=== PATIENT | female | born 1965 | race Caucasian/White ===

== ENCOUNTER 2024-03-28 07:35 | Inpatient (IN) | payer BC, SELFPAY ==
[2024-03-28] VITALS (10 sets, daily range): BP systolic 90–124; BP diastolic 57–71; PULSE 74–100; RESP 18–20; TEMP 36.2–39.6; O2SAT 93–100; BMI 17.9; BMI 19.3
--- NOTE | 2024-03-28 08:09 | XR_ITS ---
Examination: CT abdomen and pelvis without contrast. Coronal 3-D reconstructions. Sagittal 2-D reconstructions. Date and time of exam:March 28, 2024 at 0858 hours INDICATIONS: Left-sided flank pain beginning this morning CTDI: vol (mGy): 5.74 DLP: (mGycm): 307 Technique: Axial images of the abdomen have been obtained, 3 mm slice thickness Intravenous contrast material has not been administered. Low dose protocols were performed. One or more of the following dose reduction techniques were used; automated exposure control, adjustment of the mA and/or KV according to patient size, use of iterative reconstruction technique. Findings: 25 x 26 mm pulmonary mass with spiculated margins in the right middle lobe No focal liver or splenic lesion No gallstones No pancreatic mass Aorta normal size 2 mm calculus anterior left kidney image 98 Right kidney not visualized No bowel obstruction No pericecal inflammatory change Intact urinary bladder Retroverted uterus, possible 24 mm posterior left pelvic cyst Moderate osteopenia with moderate disc narrowing L5-S1 IMPRESSION: 25 x 26 mm pulmonary mass with spiculated margins right middle lobe, likely lung carcinoma, recommend CT chest without contrast follow-up 2 mm nonobstructing anterior left renal calculus, no hydronephrosis Right kidney not visualized Possible posterior 24 mm left pelvic cyst, recommend pelvic sonography follow-up
--- NOTE | 2024-03-28 08:10 | EDRME_ITS ---
Rapid Medical Screening Exam RME Arrival date/time: 03/28/24 07:35 This is a 58-year-old female who presents to the emergency department with left flank pain x 1 day. Reports possible mild fever yesterday. History of nephrectomy. I have greeted and performed a focused initial assessment of this patient. In itial appropriate labs ordered at this time. A comprehensive ED assessment and evaluation of the patient and analysis of all test and completion of medical decision making process will be conducted by additional ED provider. Chief Complaint: Abdominal Pain Time Seen by Provider: 03/28/24 07:59 Vital signs: Vital Signs Temperature 99.0 F 03/28/24 07:36 Pulse Rate 88 03/28/24 07:36 Respiratory Rate 19 03/28/24 07:36 Blood Pressure 123/71 03/28/24 07:36 Pulse Oximetry (%) 99 03/28/24 07:36 Oxygen Delivery Method Room Air 03/28/24 07:36
[2024-03-28 08:28] LABS: Collection Type, Urine Clean Catch
[2024-03-28] MEDS: ACETAMINOPHEN 500 MG TABLET 1000 MG PO ×2 (08:36→16:27)
[2024-03-28 08:51] LABS: Basophils # (Auto) 0.1 Thou/mm3 (0.0-0.2); Basophils % (Auto) 0 % (0-2.5); Eosinophils % (Auto) 0 % (0-10); Hematocrit 38.8 % (36.0-46.0); Hemoglobin 13.2 g/dL (12.0-16.0); Immature Granulocytes % (Auto) 0 % (0-0); Immature Granulocytes Auto 0.05 Thou/mm3 (0.00-0.00); Lymphocytes % (Auto) 8 % (10-50); Mean Corpuscular Hemoglobin 31.4 pg (25.0-35.0); Mean Corpuscular Volume 92 fL (80-100); Monocytes # (Auto) 0.8 Thou/mm3 (0.0-0.8); Monocytes % (Auto) 7 % (0-12); Neutrophils # (Auto) 10.2 Thou/mm3 (1.8-7.7); Neutrophils % (Auto) 84 % (37-80); Nucleated Red Blood Cell % 0 /100 WBC (0); Platelet Count 207 Thou/mm3 (140-440); Red Blood Count 4.21 Miln/mm3 (4.00-5.20); White Blood Count 12.2 Thou/mm3 (3.6-11.0)
[2024-03-28 08:52] LABS: Lactate (Lactic Acid) 1.1 mMol/L (0.4-2.0)
[2024-03-28 09:22] LABS: Bacteria,Urine 4+; Bilirubin,Urine Negative (Negative); Blood,Urine 2+ (Negative); Color,Urine Drk-Yellow (Lt Yel-Yel); Glucose, Urine Negative (Negative); Ketones,Urine Negative (Negative); Leukocyte Esterase,Urine Positive (Negative); Nitrite,Urine Positive (Negative); PH,Urine 6.5 (5.0-7.0); Protein,Urine 1+ (Neg - Trace); RBC,Urine 2 /hpf (0-3); Specific Gravity,Urine 1.005 (1.001-1.035); Squamous Epithelial Cell,Urine < 1 /hpf (0-5); Transitional Epi Cells,Urine < 1 /hpf (0-5); Urobilinogen,Urine Negative mg/dL (0.0-1.0); WBC,Urine 187 /hpf (0-5)
[2024-03-28 09:24] LABS: Alanine Aminotransferase 11 U/L (10-49); Albumin, Serum 4.6 gm/dL (3.4-4.8); Albumin/Globulin Ratio 1.6 (1.2-2.2); Alkaline Phosphatase 59 U/L (46-116); Anion Gap 10 (7-16); Aspartate Amino Transferase 22 U/L (0-34); BUN/Creatinine Ratio 12 Ratio (12-20); Bilirubin,Total 1.1 mg/dL (0.3-1.2); Blood Urea Nitrogen 12 mg/dL (9-23); Calcium 10.2 mg/dL (8.3-10.6); Calcium (Corrected) 10.2 mg/dL (8.5-10.1); Carbon Dioxide 26.4 mMol/L (20.0-31.0); Chloride 100 mMol/L (98-107); Globulin 2.9 gm/dL (2.3-3.5); Glucose 129 mg/dL (74-106); Lipase 34 U/L (12-53); Osmolality,Calculated 273 (275-295); Potassium 4.1 mMol/L (3.4-5.1); Procalcitonin 0.68 ng/ml (0.0-0.49); Sodium 136 mMol/L (136-145); Total Protein 7.5 gm/dL (5.7-8.2); eGFR > 60 See Note
[2024-03-28 09:26] LABS: Clarity,Urine Hazy (Clear/Hazy)
--- NOTE | 2024-03-28 10:15 | PD.EDABDPN ---
ED Abdominal Pain RME/HPI General Chief Complaint: Abdominal Pain Stated complaint: left flank pain since last pm Time seen by provider: 03/28/24 07:59 Arrival date/time: 03/28/24 07:35 RME / HPI RME / HPI narrative: 03/28/24 07:35 This is a 58-year-old female who presents to the emergency department with left flank pain x 1 day. Reports possible mild fever yesterday. History of nephrectomy. I have greeted and performed a focused initial assessment of this patient. Initial appropriate labs ordered at this time. A comprehensive ED assessment and evaluation of the patient and analysis of all test and completion of medical decision making process will be conducted by additional ED provider. DR. ESCOBEDO MAIN ED EVALUATION: 58 year old female presents to the ED for complaint of left flank pain beginning yesterday. Described as sharp stabbing in sensation, without radiation, rating as severe. Accompanied by subjective fever yesterday. Additionally reports she has had diarrhea for 1 week. Denies any fevers, chills, nasal congestion, chest pain, cough, shortness of breath, vomiting, or urinary symptoms. Related Data Allergies Allergy/AdvReac Type Severity Reaction Status Date / Time codeine Allergy Vomiting Verified 03/28/24 07:38 Review of Systems Review of Systems Narrative Review of Systems: Constitutional: +subjective fevers Eyes: DENIES; Loss of vision Head/Ear/Nose: DENIES; Loss of hearing Throat: DENIES; Dysphagia Cardiovascular: DENIES; Chest pain, dyspnea or syncope Respiratory: DENIES; Shortness of breath Gastrointestinal: SEE HPI +left flank pain, diarrhea DENIES; Rectal bleeding or melena. Genitourinary: DENIES; Dysuria (painful or difficult urination) Musculoskeletal: DENIES; Arthralgia (pain in a joint),; Skin: DENIES; Rash Neurological: DENIES; Loss of function or movement Psychiatric: DENIES; recent major life stressor, emotional problem, illicit drug use or abuse Endocrinology: DENIES; Weight change Hematologic/Lymphatic: DENIES; Abnormal bruising Allergic/Immunologic: DENIES; Urticaria (hives) Past Medical History Past Medical History CARDIAC: Negative Congestive Heart Failure RESPIRATORY: Negative Chronic Obstructive Pulmonary Disease (COPD) GENITOURINARY: Negative Renal Disease ENDOCRINE: Negative Diabetes Mellitus Type 1 or Diabetes Mellitus Type 2 Social History SMOKING STATUS: Former smoker ED Exam Narrative Physical exam: Physical Exam: General: The vital signs were reviewed. The patient is non-toxic, in no apparent distress and appears healthy with a patent airway, no respiratory distress and has no apparent circulatory problems. Head & Scalp: Normocephalic, atraumatic. Face: Appears normal and is without lesions, deformity. Ears: Left external pinna appears normal. Right external pinna appears normal. Eyes: The sclera is anicteric. No obvious photophobia. The Left and Right Orbit/Lid/Conjunctiva appears normal without swelling, discoloration or injection. Nose: The nose is without deformity, discharge or tenderness; Throat: Appears normal. The mucous membranes are pink and moist without exudates, redness or mass seen. The tongue appears normal. Neck: The neck is supple and no apparent mass or adenopathy. Chest: The chest wall is normal in size and symmetry and has no chest wall tenderness or crepitus. The patient displays normal ventilator effort without retractions, accessory muscle use and has adequate air movement bilaterally with no wheezes and no rales. Cardiovascular: Regular rate and rhythm; No murmurs, rubs, or gallops; Gastrointestinal: The abdomen appears normal. No obvious hernias or mass. The abdomen is soft and benign, non-distended, with no pain, no guarding and no rebound tenderness. Bowel sounds are present and normal sounding. No CVA tenderness. Genitourinary: Back/Spine: Tenderness over the left flank deep inside, not palpable Extremities/Musculoskeletal/lymphatic: The bilateral upper and lower extremities are warm. There is no evidence of arterial insufficiency. There is no evidence of venous insufficiency/edema. The patient spontaneously moves bilateral upper and lower extremities with no pain and no limitation of movement. There is no apparent, injury or trauma. Skin: The skin is warm, dry and intact. No rashes. No petechia. No purpura. No abnormal bruising. The color is appropriate with no cyanosis. Mental status/Psychiatric: Mental status is appropriate for age. The patient has no apparent delusions, visual hallucinations, no apparent audible hallucinations. The patient has no apparent suicidal thoughts/ideation and no apparent homicidal thoughts/ideation. Neurological: The patient is awake, alert, interactive, cordial, cooperative and is oriented to name and situation. The patient follows commands and answers historical question with no impairment. There is no visual disturbance apparent. The pupils are equal and reactive bilaterally with normal eye movements and no diplopia The bilateral upper and lower extremities have normal strength, normal range of motion and normal functioning. The gait, station and balance appear to be baseline with no acute change Course Quality Measures none Orders Category Date Time Status Admit to Inpatient Status Routine Admission 03/28/24 17:08 Active Patient Condition Routine Admission 03/28/24 17:07 Ordered Bedside Influenza A&B Antigen Test NOW Care 03/28/24 16:[address] Screening NOW Care 03/28/24 12:44 Active Intake and Output QSHIFT Care 03/28/24 17:15 Ordered Miscellaneous Nursing Order NOW Care 03/28/24 17:07 Active Notify provider NEEDED Care 03/28/24 17:07 Active Obtain weight NOW Care 03/28/24 17:07 Active Sequential Compression Device QSHIFT Care 03/28/24 17:[address] abdomen pelvis wo con Stat Exams 03/28/24 08:[address] chest abdomen pelvis w Stat Exams 03/28/24 12:44 Completed XR chest 2V Stat Exams 03/28/24 12:44 Completed Basic Metabolic Panel AM DRAW Lab 03/29/24 05:00 Ordered Basic Metabolic Panel AM DRAW Lab 03/30/24 05:00 Ordered Basic Metabolic Panel AM DRAW Lab 03/31/24 05:00 Ordered Blood Culture (Lab) Stat Lab 03/28/24 16:28 Received CBC AM DRAW Lab 03/29/24 05:00 Ordered CBC AM DRAW Lab 03/30/24 05:00 Ordered CBC AM DRAW Lab 03/31/24 05:00 Ordered CBC Stat Lab 03/28/24 08:25 Completed Comprehensive Metabolic Panel Stat Lab 03/28/24 08:25 Completed HCG Qualitative,Urine Stat Lab 03/28/24 10:06 Ordered Lactate (Lactic Acid) Stat Lab 03/28/24 08:25 Completed Lactate (Lactic Acid) Stat Lab 03/28/24 16:33 Completed Lipase Stat Lab 03/28/24 08:25 Completed Lipid Panel AM DRAW Lab 03/29/24 05:00 Ordered Liver Panel AM DRAW Lab 03/29/24 05:00 Ordered MRSA Nasal Screen Stat Lab 03/28/24 17:07 Ordered Magnesium AM DRAW Lab 03/29/24 05:00 Ordered Phosphorous AM DRAW Lab 03/29/24 05:00 Ordered Procalcitonin Stat Lab 03/28/24 08:25 Completed Prothrombin Time with INR AM DRAW Lab 03/29/24 05:00 Ordered Thyroid Stimulating Hormone AM DRAW Lab 03/29/24 05:00 Ordered Urinalysis Stat Lab 03/28/24 10:06 Ordered Urine Culture Stat Lab 03/28/24 08:20 Received Acetaminophen Tab [Tylenol ES Tab] Med 03/28/24 08:34 Discontinued 1,000 mg PO X1 ONE Acetaminophen Tab [Tylenol ES Tab] Med 03/28/24 16:13 Discontinued 1,000 mg PO X1 ONE Acetaminophen Tab [Tylenol Tab] Med 03/28/24 17:07 Active 650 mg PO Q6H PRN Ketorolac Inj [Toradol Inj] Med 03/28/24 08:09 Discontinued 30 mg IM X1 ONE Morphine Inj Med 03/28/24 12:19 Discontinued 4 mg IVP X1 ONE Morphine Inj Med 03/28/24 15:57 Discontinued 4 mg IVP X1 ONE Ondansetron Inj [Zofran Inj] Med 03/28/24 17:07 Active 4 mg IV Q6H PRN Ondansetron Inj [Zofran Inj] Med 03/28/24 12:18 Discontinued 4 mg IV X1 ONE Ondansetron Inj [Zofran Inj] Med 03/28/24 15:58 Discontinued 4 mg IV X1 ONE Senna [Senokot] Med 03/28/24 17:07 Active 2 tab PO BID PRN Sodium Chloride 0.9% 1000 ml [Ns] 1,000 ml Med 03/28/24 16:13 Active IV 150 mls/hr Sodium Chloride 0.9% 1000 ml [Ns] 1,000 ml Med 03/28/24 10:43 Discontinued IV 999 mls/hr cefTRIAXone/D5w 1gm IV premix [Rocephin/D5w 1gm IV Med 03/28/24 10:44 Discontinued premix] 50 ml IV X1 Code Status Routine Oth 03/28/24 17:07 Ordered Oxygen Delivery DAILY RT 03/28/24 17:07 Active Vital Signs Vital signs: Vital Signs Temperature 99.0 F 03/28/24 07:36 Pulse Rate 88 03/28/24 07:36 Respiratory Rate 19 03/28/24 07:36 Blood Pressure 123/71 03/28/24 07:36 Pulse Oximetry (%) 99 03/28/24 07:36 Oxygen Delivery Method Room Air 03/28/24 07:36 Pulse ox is 99% on room air which is adequate. Abdominal Pain MDM MDM Narrative MDM Narrative:: I Hedybren Cope, am scribing for and in the presence of Dr. Escobedo. Patient presents with left-sided abdominal pain without any fevers having some nausea but no vomiting no diarrhea Medical workup revealed a white count of 12.2 hemoglobin of 13.2 platelets were normal left shift of 84% sodium 136 potassium 4 point chloride 100 CO2 26 before BUN 12 creatinine 1.0 glucose is 129 lactic acid was 1.1 procalcitonin as 0.68. Urine is positive for some blood in 187 white blood cells were found. A culture was submitted. Patient got 2 doses of pain medicine she continue to have nonstop pain on the left side. Because of this a noncontrast scan was done of the abdomen which revealed no obstructing stone but there was a 2 mm parenchymal stone, and incidentally a 2.5 cm spiculated mass was seen in the right middle lobe. So a CT scan with contrast was done of the chest abdomen pelvis which reveals the same 2.5 cm spiculated mass concerning for neoplasm. There is no other tumor seen. There is no other evidence of metastatic disease and the chest and abdominal exam otherwise was negative. Patient began to spike a fever of 103 and was still having pain so at that point we assume she is got pyelonephritis and because she is having continued nausea and pain will get admitted for fluids intractable pain. She got Rocephin to treat her urine infection. Blood culture is also pending. Hospitalist was contacted and they will admit the patient and they are aware she has a single kidney and also the lung mass was addressed and the family is aware that they will need follow-up and probable lung biopsy. Patient data External records reviewed:: None (No previous visits for review ) Clinical information provided by:: patient Social determinants that could affect healthcare access:: none Patient has the following chronic illnesses:: Kidney stone, solitary kidney How is presenting disease/condition affected by chronic disease/condition?: exacerbated by Evaluation data The following diagnostics were reviewed and interpreted by me:: lab results and radiology exam(s) Lab and/or radiology exams considered but not ordered:: None Interpretation Summary: Ordering Physician: Esquivel,Angela M [employer] Date of Service: 03/28/24 Procedure(s): CT abdomen pelvis wo [facility] Accession Number(s): [id number] cc: Austin Guzman MD; NO PRIMARY/FAMILY,PHYSICIAN; Angela Esquivel [employer]~ Examination: CT abdomen and pelvis without contrast. Coronal 3-D reconstructions. Sagittal 2-D reconstructions. Date and time of exam:March 28, 2024 at 0858 hours INDICATIONS: Left-sided flank pain beginning this morning CTDI: vol (mGy): 5.74 DLP: (mGycm): 307 Technique: Axial images of the abdomen have been obtained, 3 mm slice thickness Intravenous contrast material has not been administered. Low dose protocols were performed. One or more of the following dose reduction techniques were used; automated exposure control, adjustment of the mA and/or KV according to patient size, use of iterative reconstruction technique. Findings: 25 x 26 mm pulmonary mass with spiculated margins in the right middle lobe No focal liver or splenic lesion No gallstones No pancreatic mass Aorta normal size 2 mm calculus anterior left kidney image 98 Right kidney not visualized No bowel obstruction No pericecal inflammatory change Intact urinary bladder Retroverted uterus, possible 24 mm posterior left pelvic cyst Moderate osteopenia with moderate disc narrowing L5-S1 IMPRESSION: 25 x 26 mm pulmonary mass with spiculated margins right middle lobe, likely lung carcinoma, recommend CT chest without contrast follow-up 2 mm nonobstructing anterior left renal calculus, no hydronephrosis Right kidney not visualized Possible posterior 24 mm left pelvic cyst, recommend pelvic sonography follow-up Dictated By: Austin Guzman MD Signed By: <Electronically signed by Austin Guzman MD in OV> 03/28/24 0944 Ordering Physician: Norris Escobedo MD Date of Service: 03/28/24 Procedure(s): XR chest 2V Accession Number(s): [id number] cc: Norris Escobedo MD; Austin Guzman MD; NO PRIMARY/FAMILY,PHYSICIAN~ Examination: PA lateral chest 2 views TECHNIQUE: Upright PA lateral chest 2 views Exam date and time: March 28, 2024 1255 hours Comparison May 03, 2016 INDICATIONS: Chest pain today, CT abdomen March 28, 2024 26 mm spiculated pulmonary mass right middle lobe FINDINGS: 26 mm spiculated pulmonary mass right middle lobe No hilar lymphadenopathy Significant hyperexpansion Normal heart size IMPRESSION: Pulmonary neoplasm right middle lobe Dictated By: Austin Guzman MD Signed By: <Electronically signed by Austin Guzman MD in OV> 03/28/24 1314 Ordering Physician: Norris Escobedo MD Date of Service: 03/28/24 Procedure(s): CT chest abdomen pelvis w Accession Number(s): [id number] cc: Norris Escobedo MD; Austin Guzman MD; NO PRIMARY/FAMILY,PHYSICIAN~ Examination: CT chest with intravenous contrast CT abdomen with intravenous contrast CT pelvis with intravenous contrast 2-D coronal and sagittal reconstructions Time of exam: March 28, 2024 1418 hours INDICATIONS: Onset chest pain abdominal pain today, 26 mm spiculated pulmonary mass right middle lobe on chest x-ray March 28, 2024, staging CTDI: vol (mGy) : 7.14 DLP: (mGycm): 517 Technique: Multiple axial images of the chest, abdomen and pelvis with intravenous contrast, 3.0 mm slice thickness. Images obtained post intravenous injection Isovue 370 60 cc. 2-D sagittal and coronal reconstructions. Low dose protocols were performed. One or more of the following dose reduction techniques were used; automated exposure control, adjustment of the mA and/or KV according to patient size, use of iterative reconstruction technique. Findings: No thoracic aortic aneurysmal dilatation Pulmonary artery opacification is poor No paratracheal tracheobronchial or bronchopulmonary lymphadenopathy 25 mm pulmonary mass spiculated margins right middle lobe No pneumonia or pulmonary edema No liver or splenic lesion No gallstones No pancreatic mass No left hydronephrosis Right kidney not visualized No abdominal or pelvic lymphadenopathy Left pelvic cyst Urinary bladder wall thickening Advanced degenerative disc disease L5-S1 IMPRESSION: 25 mm pulmonary mass with spiculated margins right middle lobe No mediastinal lymphadenopathy No findings of metastatic disease in the abdomen or pelvis Dictated By: Austin Guzman MD Signed By: <Electronically signed by Austin Guzman MD in OV> 03/28/24 1546 Medications / Prescriptions Medications or Prescriptions considered but not ordered:: None Medication administrations:: Medication Administration History Acetaminophen (Acetaminophen 325 Mg Tablet) 650 mg PO Q6H PRN PRN Reason: PAIN OR FEVER > 101 Stop: 04/27/24 17:06 Sodium Chloride (Ns) 1,000 mls @ 150 mls/hr IV .Q6H40M ONE Stop: 03/28/24 22:52 Last Admin: 03/28/24 16:24 Dose: 150 mls/hr Documented By: GAVIN Ondansetron HCl (Ondansetron Inj 2 Mg/Ml Inj 2 Ml) 4 mg IV Q6H PRN; Protocol PRN Reason: NAUSEA OR VOMITING Stop: 04/27/24 17:06 Sennosides (Senna Tablet) 2 tab PO BID PRN; Protocol PRN Reason: CONSTIPATION Stop: 04/27/24 17:06 Discontinued Medications Acetaminophen (Acetaminophen 500 Mg Tablet) 1,000 mg PO X1 ONE Stop: 03/28/24 08:35 Last Admin: 03/28/24 08:36 Dose: 1,000 mg Documented By: GM Acetaminophen (Acetaminophen 500 Mg Tablet) 1,000 mg PO X1 ONE Stop: 03/28/24 16:14 Last Admin: 03/28/24 16:27 Dose: 1,000 mg Documented By: GAVIN Sodium Chloride (Ns) 1,000 mls @ 999 mls/hr IV .Q1H1M ONE Stop: 03/28/24 11:43 Last Infusion: 03/28/24 12:00 Dose: Infused Documented By: Admin: 03/28/24 10:59 Dose: 999 mls/hr Documented By: GAVIN Ceftriaxone Sodium/Dextrose (Rocephin/D5w 1gm Iv Premix) 50 mls @ 100 mls/hr IV X1 ONE Stop: 03/28/24 11:13 Last Infusion: 03/28/24 11:29 Dose: Infused Documented By: Admin: 03/28/24 10:59 Dose: 100 mls/hr Documented By: GAVIN Ketorolac Tromethamine (Ketorolac Inj 60 Mg/2 Ml Vial) 30 mg IM X1 ONE Stop: 03/28/24 08:10 Last Admin: 03/28/24 08:34 Dose: Not Given Documented By: LATRICE Non-Admin Reason: Patient Refused Morphine Sulfate (Morphine Sulf Inj 10 Mg/Ml Vial) 4 mg IVP X1 ONE Stop: 03/28/24 12:20 Last Admin: 03/28/24 12:43 Dose: 4 mg Documented By: GAVIN Morphine Sulfate (Morphine Sulf Inj 10 Mg/Ml Vial) 4 mg IVP X1 ONE Stop: 03/28/24 15:58 Ondansetron HCl (Ondansetron Inj 2 Mg/Ml Inj 2 Ml) 4 mg IV X1 ONE; Protocol Stop: 03/28/24 12:19 Last Admin: 03/28/24 12:31 Dose: 4 mg Documented By: GAVIN Ondansetron HCl (Ondansetron Inj 2 Mg/Ml Inj 2 Ml) 4 mg IV X1 ONE; Protocol Stop: 03/28/24 15:59 Last Admin: 03/28/24 16:08 Dose: 4 mg Documented By: GAVIN See above Consultations Consultation(s) initiated? (list below): Yes Consultation #1 (Physician, Specialty, Details): I spoke with resident Dr. Delacruz working with Dr. Braden. Discussed patients PMHx, HPI, ED course, exam findings, labs, and radiology results. The hospitalist agree to accept the patient for admission. Diagnosis Differential diagnosis abdominal pain: abdominal pain, calculus of kidney, constipation and diverticulitis Most likely diagnosis given after review of the tests above:: Left lateral abdominal pain Mass of right lung Single kidney UTI Fever Intractable back pain Acute pyelonephritis Admission Indicated Admission indicated?: indicated Admission Request Was there a request for admission?: Yes Admission Attestation Admission request attestation: Discussed case with [] from Hospitalist service regarding admission. Discussed patients ED course, exam findings, labs, and radiology results. The Hospitalist [agrees,declines] to accept the patient for admission. Disposition Plan Disposition Plan: Admit Discharge Plan Plan Patient Disposition: Admit Acute Care w/in Hospital Disposition Comment: Hospitalist Prescriptions/Referrals Referrals: No Primary/Family,Physician [Primary Care Provider] - In 1 week Problem List Clinical Impression: Left lateral abdominal pain, Mass of right lung, Single kidney, Urinary tract infection, Fever, Intractable back pain, Acute pyelonephritis Patient/Caregiver Discharge Instructions Print Language: French Stand Alone Forms: Yana Award Info., Patient Portal Info Letter
[2024-03-28] MEDS: SODIUM CHLORIDE 0.9% 1000 ML 1,000 ML 999 ML IV ×2 (10:59→18:15)
[2024-03-28] MEDS: cefTRIAXone/D5w 1gm IV premix 50 ML IV (10:59)
[2024-03-28] MEDS: ONDANSETRON INJ 2 MG/ML INJ 2 ML 4 MG IV ×2 (12:31→16:08)
[2024-03-28] MEDS: MORPHINE SULF INJ 10 MG/ML VIAL 4 MG IVP ×2 (12:43→17:47)
--- NOTE | 2024-03-28 12:44 | XR_ITS ---
Examination: CT chest with intravenous contrast CT abdomen with intravenous contrast CT pelvis with intravenous contrast 2-D coronal and sagittal reconstructions Time of exam: March 28, 2024 1418 hours INDICATIONS: Onset chest pain abdominal pain today, 26 mm spiculated pulmonary mass right middle lobe on chest x-ray March 28, 2024, staging CTDI: vol (mGy) : 7.14 DLP: (mGycm): 517 Technique: Multiple axial images of the chest, abdomen and pelvis with intravenous contrast, 3.0 mm slice thickness. Images obtained post intravenous injection Isovue 370 60 cc. 2-D sagittal and coronal reconstructions. Low dose protocols were performed. One or more of the following dose reduction techniques were used; automated exposure control, adjustment of the mA and/or KV according to patient size, use of iterative reconstruction technique. Findings: No thoracic aortic aneurysmal dilatation Pulmonary artery opacification is poor No paratracheal tracheobronchial or bronchopulmonary lymphadenopathy 25 mm pulmonary mass spiculated margins right middle lobe No pneumonia or pulmonary edema No liver or splenic lesion No gallstones No pancreatic mass No left hydronephrosis Right kidney not visualized No abdominal or pelvic lymphadenopathy Left pelvic cyst Urinary bladder wall thickening Advanced degenerative disc disease L5-S1 IMPRESSION: 25 mm pulmonary mass with spiculated margins right middle lobe No mediastinal lymphadenopathy No findings of metastatic disease in the abdomen or pelvis
--- NOTE | 2024-03-28 12:44 | XR_ITS ---
Examination: PA lateral chest 2 views TECHNIQUE: Upright PA lateral chest 2 views Exam date and time: March 28, 2024 1255 hours Comparison May 03, 2016 INDICATIONS: Chest pain today, CT abdomen March 28, 2024 26 mm spiculated pulmonary mass right middle lobe FINDINGS: 26 mm spiculated pulmonary mass right middle lobe No hilar lymphadenopathy Significant hyperexpansion Normal heart size IMPRESSION: Pulmonary neoplasm right middle lobe
--- NOTE | 2024-03-28 16:07 | PC.NURSE ---
cooling measures started , ice packs placed.
[2024-03-28] MEDS: SODIUM CHLORIDE 0.9% 1000 ML 1,000 ML 150 ML IV (16:24)
[2024-03-28 16:45] LABS: Lactate (Lactic Acid) 1.2 mMol/L (0.4-2.0)
--- NOTE | 2024-03-28 17:16 | ESHP_ITS ---
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 Per son, patient started to have abdominal pain on Monday03/25/2024 but subsided. Yesterday 03/27/2024 patient started to have abdominal pain associated with nausea and vomiting. Today patients abdominal pain was more focused on the left side of her back and was having nausea and diarrhea, as well as some discomfort with urination and was brought to the ED. Denies fever, chills, shortness of breath, chest pain. Patient will be admitted for Sepsis secondary to pyelonephritis. ED course: Vitals on arrival stable. Labs significant for elevated WBCs 12.2, glucose 129, corrected calcium 10.2, procalcitonin 0.68,. UA shows dark urine, +1 protein, +2 blood, 187 WBCs, +[address] abdomen pelvis showed 25 x 26 mm pulmonary mass with spiculated margins right middle lobe, likely lung carcinoma, recommend CT chest without contrast follow-up, 2 mm nonobstructing anterior left renal calculus, no hydronephrosis, Right kidney not visualized, Possible posterior 24 mm left pelvic cyst, recommend pelvic sonography follow-up. 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 In the ED patient was given morphine, IV fluids, ceftriaxone, tylenol PMHx: none SxHx: kidney donation Social Hx: quit vaping and drinking 1 year ago, denies any illicit substance use FHx: unknown Review of Systems Review of Systems ROS Unobtainable: unobtainable due to mental status Narrative Review of Systems: Patient was sleepy due to morphine, unable to assess ROS Exam Vital Signs Temp Pulse Resp BP Pulse Ox O2 Del Method 103.3 F H 100 20 124/70 95 Room Air 03/28/24 16:27 03/28/24 16:07 03/28/24 16:07 03/28/24 16:07 03/28/24 16:07 03/28/24 16:07 Narrative Exam Physical Exam GENERAL: NAD, AAOx3 HEENT: Moist mucosa. Eyes open, symmetrical, & clear CARDIO: No chest pain on palpation. Heart RRR, no obvious murmurs PULM: No noted coughing/dyspnea. 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 SKIN/MSK/EXT: No wounds/rashes/edema/amputations, no pain on palpation. Pedal pulses present B/L NEURO: AAOx3, no focal neuro deficits Results: Labs 03/29/24 05:44 03/29/24 05:44 Labs: Short CBC 03/28/24 Range/Units 08:25 WBC 12.2 H (3.6-11.0) Thou/mm3 Hgb 13.2 (12.0-16.0) g/dL Hct 38.8 (36.0-46.0) % Plt Count 207 (140-440) Thou/mm3 BMP 03/28/24 08:25 Sodium 136 Potassium 4.1 Chloride 100 Carbon Dioxide 26.4 BUN 12 Creatinine 1.0 Glucose 129 H Calcium 10.2 Liver Function 03/28/24 Range/Units 08:25 Total Bilirubin 1.1 (0.3-1.2) mg/dL AST 22 (0-34) U/L ALT 11 (10-49) U/L Alkaline Phosphatase 59 (46-116) U/L Albumin 4.6 (3.4-4.8) gm/dL Urine 03/28/24 Range/Units 08:20 Urine Color Drk-Yellow A (Lt Yel-Yel) Urine Clarity Hazy (Clear/Hazy) Urine pH 6.5 (5.0-7.0) Ur Specific Burchard 1.005 (1.001-1.035) Urine Protein 1+ A (Neg - Trace) Urine Glucose (UA) Negative (Negative) Quality Measures Quality Measures none Medications Home Medications and Allergies Home Medications ?Medication ?Instructions ?Recorded ?Confirmed ?Type No Known Home Medications 03/28/24 03/28/24 History Allergies Allergy/AdvReac Type Severity Reaction Status Date / Time codeine Allergy Vomiting Verified 03/28/24 07:38 Visit Medications Acetaminophen (Acetaminophen 325 Mg Tablet) 650 mg PO Q6H PRN PRN Reason: PAIN OR FEVER > 101 Stop: 04/27/24 17:06 Sodium Chloride (Ns) 1,000 mls @ 150 mls/hr IV .Q6H40M ONE Stop: 03/28/24 22:52 Last Admin: 03/28/24 16:24 Dose: 150 mls/hr Ondansetron HCl (Ondansetron Inj 2 Mg/Ml Inj 2 Ml) 4 mg IV Q6H PRN; Protocol PRN Reason: NAUSEA OR VOMITING Stop: 04/27/24 17:06 Sennosides (Senna Tablet) 2 tab PO BID PRN; Protocol PRN Reason: CONSTIPATION Stop: 04/27/24 17:06 Discontinued Medications Acetaminophen (Acetaminophen 500 Mg Tablet) 1,000 mg PO X1 ONE Stop: 03/28/24 08:35 Last Admin: 03/28/24 08:36 Dose: 1,000 mg Acetaminophen (Acetaminophen 500 Mg Tablet) 1,000 mg PO X1 ONE Stop: 03/28/24 16:14 Last Admin: 03/28/24 16:27 Dose: 1,000 mg Sodium Chloride (Ns) 1,000 mls @ 999 mls/hr IV .Q1H1M ONE Stop: 03/28/24 11:43 Last Infusion: 03/28/24 12:00 Dose: Infused Ceftriaxone Sodium/Dextrose (Rocephin/D5w 1gm Iv Premix) 50 mls @ 100 mls/hr IV X1 ONE Stop: 03/28/24 11:13 Last Infusion: 03/28/24 11:29 Dose: Infused Ketorolac Tromethamine (Ketorolac Inj 60 Mg/2 Ml Vial) 30 mg IM X1 ONE Stop: 03/28/24 08:10 Last Admin: 03/28/24 08:34 Dose: Not Given Morphine Sulfate (Morphine Sulf Inj 10 Mg/Ml Vial) 4 mg IVP X1 ONE Stop: 03/28/24 12:20 Last Admin: 03/28/24 12:43 Dose: 4 mg Morphine Sulfate (Morphine Sulf Inj 10 Mg/Ml Vial) 4 mg IVP X1 ONE Stop: 03/28/24 15:58 Ondansetron HCl (Ondansetron Inj 2 Mg/Ml Inj 2 Ml) 4 mg IV X1 ONE; Protocol Stop: 03/28/24 12:19 Last Admin: 03/28/24 12:31 Dose: 4 mg Ondansetron HCl (Ondansetron Inj 2 Mg/Ml Inj 2 Ml) 4 mg IV X1 ONE; Protocol Stop: 03/28/24 15:59 Last Admin: 03/28/24 16:08 Dose: 4 mg Assessment & Plan Plan 58 y/o F with hx of kidney donation presented to the ED with left sided flank pain, nausea, vomiting. Admitted for sepsis secondary to pyelonephritis. #Sepsis secondary to pyelonephritis Patient arrived with abdominal and left sided flank pain that began on Monday and has been progressing till arrival to ED On physical exam patient has + CVA tenderness CT abdomen pelvis was done and showed 25 x 26 mm pulmonary mass with spiculated margins right middle lobe, likely lung carcinoma, recommend CT chest without contrast follow-up, 2 mm nonobstructing anterior left renal calculus, no hydronephrosis, Right kidney not visualized, Possible posterior 24 mm left pelvic cyst, recommend pelvic sonography follow-up After my evaluation Sepsis alert was called Patient had fever, elevated WBCs, tachycardia, and UA showing bacterial infection Was given IVFs in ED - ordered 1L NS bolus - on Zosyn - blood cultures ordered - Urine cultures ordered - Cocci ordered - lactic acid ordered q4 hours #2 mm nonobstructing anterior left renal calculus Finding on CT abdomen pelvis patient has abdominal pain with nausea and vomiting patient has only 1 kidney as she donated the other to - IVFs - pain control - strainer for stone #25 x 26 mm pulmonary mass with spiculated margins right middle lobe incidental finding on CT abdomen pelvis CT chest abdomen pelvis done and showed 25 mm pulmonary mass with spiculated margins right middle lobe No mediastinal lymphadenopathy, No findings of metastatic disease in the abdomen or pelvis - follow up #Possible Left pelvic cyst Possible posterior 24 mm left pelvic cyst, recommend pelvic sonography follow-up - Pelvic ultrasound ordered Case discussed with my senior Dr. Delacruz PGY-[address] Asiya Ivey MD PGY-1 Disposition: Medsurg Fluids: NS Feeding: regular Thrombo prophylaxis: Heparin Gastric Ulcer prophylaxis: none CODE STATUS: Limited code, no intubation Senior resident attestation: Patient evaluated and examined at the bedside, plan of care discussed with rest of the team including my attending physician, except as noted. 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 Patient was admitted for sepsis secondary to pyelonephritis. #Sepsis secondary to pyelonephritis?sepsis alert called, IV fluid boluses given, blood cultures, urine cultures ordered, lactic acid q4h, started on IV Zosyn. -Of note, apparently we do not have urology coverage available for the week, though given this patient's presentation of complicated UTI but nonobstructive kidney stone, patient can likely be managed with conservative management. Patient's son at the bedside is present, we discussed the possibility of transfer if the need arises at a later date for urological services. They reported understanding. Questions and concerns were answered. #Pulmonary mass with spiculated margins?CT shows 25 mm pulmonary abscess and pulm nodules right middle lobe, reported as pulmonary neoplasm, will try to arrange inpatient IR biopsy of the mass. Quresh PGY2 Attending Provider Attestation/Addendum I have examined the patient, reviewed labs and imaging findings, discussed the case with the resident(s), and reviewed entered orders. I agree with the plan of care as outlined in this note, with these additional summaries/recommendations: Patient seen at bedside. Patient presented with left flank pain and urinary symptoms. Urinalysis showed nitrite positive, leukocyte esterase positive WBC 187, and 4+ bacteria. Patient endorsing severe left flank pain and suspect patient has sepsis secondary to pyelonephritis although no perinephric fat stranding on CT although likely early pyelonephritis. Sepsis alert called in ED and given IV fluids. Start IV Zosyn, maintenance fluids 75 cc/h, and pain management. Urine and blood cultures taken. Patient was also found to have a 2 mm nonobstructing anterior left renal calculus with no evidence of hydronephrosis. Given the size of the stone, likely noncontributory to patient's left flank pain although patient may have passed a stone. Start Flomax. No need for urological evaluation at this time given the size of the stone and no hydronephrosis seen. Start pain management. Patient was also found to have a 25 x 26 mm pulmonary mass with spiculated margins and right middle lobe concerning for lung cancer. We will discuss with patient and family regarding further workup and management. Repeat hematology and chemistry panel in AM. Dr. Braden
[2024-03-28] MEDS: TAMSULOSIN HCL 0.4 MG CAPSULE PO (17:44)
--- NOTE | 2024-03-28 17:44 | XR_ITS ---
Examination: Pelvic ultrasound, transabdominal, complete Technique: Transabdominal ultrasound of the pelvis performed using grayscale imaging Date and time of exam: March 28, 2024 1836 hrs. Indications: Abdominal and pelvic pain today, 24 mm posterior left pelvic cyst on CT pelvis study today Findings: Uterus 7.0 x 3.6 x 5.2 cm retroverted No uterine mass Right ovary obscured by bowel gas Left ovary 3.2 x 3.5 x 4.5 cm arterial flow, left ovarian simple cyst 2.9 x 2.2 x 2.2 cm Impression: Left ovarian simple cyst 2.9 x 2.2 x 2.2 cm
[2024-03-28] MEDS: PIPER/TAZO INJ 3.375 GM in SODIUM CHLORIDE 0.9% (P) 50 ML IV ×2 (17:45→21:26)
--- NOTE | 2024-03-28 18:29 | PC.NURSE ---
notified dr. gallardo of pt bp being in the 90s systolic and having fever. acknowledged. sepsis alert initiated. orders recieved .
[2024-03-28 18:54] LABS: Lactate (Lactic Acid) 0.8 mMol/L (0.4-2.0)
--- NOTE | 2024-03-28 19:21 | PC.NURSE ---
REPORT GIVEN TO Daisy BARRERA
[2024-03-28 22:46] LABS: Lactate (Lactic Acid) 2.3 mMol/L (0.4-2.0)
[2024-03-28] MEDS: SODIUM CHLORIDE 0.9% 500 ML 500 ML 75 ML IV (23:40)
[2024-03-28] MEDS: ACETAMINOPHEN 325 MG TABLET 650 MG PO (23:58)
[2024-03-29] VITALS (10 sets, daily range): BP systolic 92–108; BP diastolic 53–73; PULSE 70–79; RESP 17–96; TEMP 36.4–37.8; O2SAT 91–97
[2024-03-29 01:40] LABS: Reflex Lactate? Y
[2024-03-29 02:00] LABS: Lactic Acid, 3 HR 1.5 mMol/L (0.4-2.0)
[2024-03-29] MEDS: PIPER/TAZO INJ 3.375 GM in SODIUM CHLORIDE 0.9% (P) 50 ML IV ×3 (05:03→21:40)
[2024-03-29 06:14] LABS: Basophils % (Auto) 0 % (0-2.5); Eosinophils % (Auto) 0 % (0-10); Hematocrit 29.4 % (36.0-46.0); Hemoglobin 10.1 g/dL (12.0-16.0); Immature Granulocytes % (Auto) 1 % (0-0); Immature Granulocytes Auto 0.14 Thou/mm3 (0.00-0.00); Lymphocytes # (Auto) 1.3 Thou/mm3 (1.0-4.8); Lymphocytes % (Auto) 12 % (10-50); Mean Corpuscular HGB Conc 34.4 g/dl (31.0-37.0); Mean Corpuscular Hemoglobin 31.5 pg (25.0-35.0); Mean Corpuscular Volume 92 fL (80-100); Monocytes # (Auto) 0.8 Thou/mm3 (0.0-0.8); Monocytes % (Auto) 7 % (0-12); Neutrophils # (Auto) 9.2 Thou/mm3 (1.8-7.7); Neutrophils % (Auto) 80 % (37-80); Nucleated Red Blood Cell % 0 /100 WBC (0); Platelet Count 131 Thou/mm3 (140-440); Red Blood Count 3.21 Miln/mm3 (4.00-5.20); White Blood Count 11.6 Thou/mm3 (3.6-11.0)
[2024-03-29] MEDS: MORPHINE SULF INJ 10 MG/ML VIAL 4 MG IVP ×2 (06:17→11:26)
[2024-03-29] MEDS: ONDANSETRON INJ 2 MG/ML INJ 2 ML 4 MG IV ×3 (06:17→18:34)
[2024-03-29 06:26] LABS: INR 1.2 (0.9-1.3); Prothrombin Time 12.9 Seconds (9.0-12.2)
[2024-03-29 06:55] LABS: Alanine Aminotransferase < 7 U/L (10-49); Albumin, Serum 3.5 gm/dL (3.4-4.8); Alkaline Phosphatase 41 U/L (46-116); Anion Gap 7 (7-16); Aspartate Amino Transferase 12 U/L (0-34); BUN/Creatinine Ratio 12 Ratio (12-20); Bilirubin,Direct 0.2 mg/dL (0.0-0.3); Bilirubin,Total 0.6 mg/dL (0.3-1.2); Blood Urea Nitrogen 15 mg/dL (9-23); Calcium 8.1 mg/dL (8.3-10.6); Carbon Dioxide 23.9 mMol/L (20.0-31.0); Cardiac Risk Estimate 3.2 RATIO (3.7-5.6); Chloride 105 mMol/L (98-107); Cholesterol 149 mg/dL (132-200); Creatinine (Component) 1.3 mg/dL (0.6-1.3); Estimated Creatinine Clearance 44.4 mL/min (>60); Glucose 109 mg/dL (74-106); HDL Cholesterol 47 mg/dL (40-60); LDL Cholesterol,Calculated 88 mg/dL (0-130); Magnesium 1.6 mg/dL (1.6-2.6); Osmolality,Calculated 273 (275-295); Phosphorous 3.3 mg/dL (2.4-5.1); Potassium 3.9 mMol/L (3.4-5.1); Sodium 136 mMol/L (136-145); Thyroid Stimulating Hormone 1.08 uIU/mL (0.55-4.78); Total Protein 5.6 gm/dL (5.7-8.2); Triglycerides 71 mg/dL (30-150); eGFR 47 See Note
[2024-03-29] MEDS: PANTOPRAZOLE INJ 40 MG VIAL IVP (08:44)
[2024-03-29] MEDS: TAMSULOSIN HCL 0.4 MG CAPSULE PO (08:45)
[2024-03-29] MEDS: SODIUM CHLORIDE 0.9% 1000 ML 1,000 ML 999 ML IV (10:43)
[2024-03-29] MEDS: SODIUM CHLORIDE 0.9% 1000 ML 1,000 ML 100 ML IV ×2 (10:46→21:40)
--- NOTE | 2024-03-29 11:24 | PC.SS ---
SS met with patient regarding her d/c plan. Pt is alert/oriented. Pt was admitted for Pyelonephritis. Pt confirmed demographic and contact information is correct on facesheet. Patient resides at [address] [place] [address]. Pt resides with son. Pt ambulates independently without assistance or DME. Pt is ok with all ADLs. Patient?s pharmacy of choice is [facility]. Pt named her daughter, Mariely Tse medical decision maker if she is unable. Patient?s choice is to return home upon d/c. Pt states she followed up with PCP last year. Pt states not diabetic and is not on dialysis. D/C plan: Return home Next of Kin: Mariely Tse, daughter, phone# [phone] PCP: Dr. Shayne Banks Physical Address: [address] [place] [address] Mailing Address: correct on facesheet
--- NOTE | 2024-03-29 11:50 | PC.SS ---
Follow up note: Cultures and sensitivity is pending. Pt will return home upon dc.
[2024-03-29 12:29] LABS: Cocci Serology, IgM Positive (Negative)
[2024-03-29 12:30] LABS: Cocid Sro, CF/ID (UCD) NO CHG* See Sep Rpt
[2024-03-29] MEDS: FLUCONAZOLE 100 MG TABLET 400 MG PO (14:18)
--- NOTE | 2024-03-29 17:08 | ESPR_ITS ---
<Statement entered by Jay Sim MD - 03/29/24 18:55> Patient was seen and examined at bedside, she reported that her pain has significantly improved, she denied any nausea or vomiting, and she reported that her fever has not recurred. Vitally the patient was stable, her WBC continues to downtrend and today its 11.6, also hemoglobin went down to 10 and also platelets went down to 131 most likely secondary to hemodilution. We also noticed that the patient has developed JOEL most likely prerenal versus renal due to her sepsis in which her serum creatinine increased from 1.0-1.3 for that reason we will start the patient on IV fluid maintenance and will give the patient 1 L bolus of IV fluids. At this time culture and sensitivity still pending. Patient was found to have pulmonary nodule spiculated the radiologist Dr Guzman suspect that the patient has malignancy and also because the patient has elevated calcium level we recommended the patient to do outpatient biopsy as soon as possible we explained to the patient the seriousness of these findings. Even though the patient was tested positive for for cocci however the radiological character and the solitary pulmonary nodule malignancy showed that the patient has high risk of malignancy which almost 79% probability of malignancy. 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 - Patient's plan and care discussed with my attending, Dr. Asiya Sim MD Internal Medicine PGY-2 Documentation for date of: 03/29/24 Subjective Subjective Interval history: Pt examined at bedside today. No acute overnight events. Says that she still has some back tenderness, but denies any chest pain or shortness of breath. Is wondering what is going on with her lung mass. Is also wondering why she has gotten the kidney infection. No other complaints at this time. Family present at bedside Exam Vital Signs Temp Pulse Resp BP Pulse Ox O2 Del Method 100.0 F 71 18 102/60 97 Room Air 03/29/24 16:00 03/29/24 16:00 03/29/24 16:00 03/29/24 16:00 03/29/24 16:00 03/29/24 16:00 Narrative Exam General: AAOx3, NAD, was crying for a short period of time when examined HEENT: Moist mucous membranes, conjunctiva clear, EOMI, PERRLA, Cardiovascular: S1, S2, radial pulses +2 bilat, RRR Pulmonary: CTAB bilat no cough, no wheezing GI: No tenderness to light or deep palpitation, no guarding, rigidity, rebound tenderness or distension Extremities: No presence of trace or pitting edema in lower extremities bilaterally, dorsalis pedis pulses +2 bilaterally Back: +CVA tenderness L side Neuro: AAOx3, no focal motor or sensory deficits in the UE or LE bilat Psych: Good judgement, thought and behavior. Cooperative Objective Labs 03/30/24 05:35 03/30/24 05:35 Labs: Laboratory Results - last 24 hr 03/28/24 03/28/24 03/28/24 18:18 18:43 22:35 WBC RBC Hgb Hct MCV MCH MCHC RDW Std Deviation Plt Count Neut % (Auto) Lymph % (Auto) Gilchrist % (Auto) Eos % (Auto) Baso % (Auto) Neut # (Auto) Lymph # (Auto) Gilchrist # (Auto) Eos # (Auto) Baso # (Auto) Immature Gran # (Auto) Absolute Nucleated RBC Immature Gran % Nucleated RBC % PT INR Sodium Potassium Chloride Carbon Dioxide Anion Gap BUN Creatinine Estim Creat Clear Calc eGFR BUN/Creatinine Ratio Glucose Calculated Osmolality Lactic Acid 0.8 2.3 H Calcium Phosphorus Magnesium Total Bilirubin Direct Bilirubin AST ALT Alkaline Phosphatase Total Protein Albumin Triglycerides Cholesterol LDL Cholesterol, Calc HDL Cholesterol Cholesterol/HDL Ratio TSH Coccidioides IgM Ab Positive A 03/29/24 03/29/24 01:40 05:44 WBC 11.6 H RBC 3.21 L Hgb 10.1 L D Hct 29.4 L MCV 92 MCH 31.5 MCHC 34.4 RDW Std Deviation 44.0 Plt Count 131 L D Neut % (Auto) 80 Lymph % (Auto) 12 Gilchrist % (Auto) 7 Eos % (Auto) 0 Baso % (Auto) 0 Neut # (Auto) 9.2 H Lymph # (Auto) 1.3 Gilchrist # (Auto) 0.8 Eos # (Auto) 0.0 Baso # (Auto) 0.0 Immature Gran # (Auto) 0.14 H Absolute Nucleated RBC 0.00 Immature Gran % 1 H Nucleated RBC % 0 PT 12.9 H INR 1.2 Sodium 136 Potassium 3.9 Chloride 105 Carbon Dioxide 23.9 Anion Gap 7 BUN 15 Creatinine 1.3 Estim Creat Clear Calc 44.4 L eGFR 47 L BUN/Creatinine Ratio 12 Glucose 109 H Calculated Osmolality 273 L Lactic Acid 1.5 Calcium 8.1 L D Phosphorus 3.3 Magnesium 1.6 Total Bilirubin 0.6 D Direct Bilirubin 0.2 AST 12 ALT < 7 L Alkaline Phosphatase 41 L D Total Protein 5.6 L Albumin 3.5 D Triglycerides 71 Cholesterol 149 LDL Cholesterol, Calc 88 HDL Cholesterol 47 Cholesterol/HDL Ratio 3.2 L TSH 1.08 Coccidioides IgM Ab Quality Measures Quality Measures none Assessment & Plan Assessment Current Active Medications: Generic Name Dose Route Start Last Admin Trade Name Freq PRN Reason Stop Dose Admin Acetaminophen 650 mg 03/28/24 17:07 03/28/24 23:58 Acetaminophen 325 Mg Tablet PO 04/27/24 17:06 650 mg Q6H PRN Administration PAIN OR FEVER > 101 Protocol Hydrocodone Bitart/Acetaminophen 1 tab 03/29/24 08:43 Hydrocodone/Apap 7.5/325 Tablet PO 04/03/24 08:42 Q6HR PRN PAIN SCALE 4-6 (Moderate Fluconazole 400 mg 03/29/24 12:45 03/29/24 14:18 Fluconazole 100 Mg Tablet PO 04/05/24 12:44 400 mg QDAY HEIDE Administration Heparin Sodium (Porcine) 5,000 unit 03/28/24 22:00 03/29/24 14:19 Heparin Sod Inj 5000 Unit/Ml Vial SC 04/11/24 21:59 Not Given Q8HR HEIDE Piperacillin Sod/Tazobactam 50 mls @ 12.5 mls/hr 03/28/24 22:00 03/29/24 14:16 Sod 3.375 gm/ Sodium Chloride IV 04/04/24 21:59 12.5 mls/hr Q8HR HEIDE Administration Sodium Chloride 1,000 mls @ 100 mls/hr 03/29/24 08:47 03/29/24 10:46 Ns IV 04/28/24 08:46 100 mls/hr .Q10H HEIDE Administration Morphine Sulfate 4 mg 03/29/24 08:44 03/29/24 11:26 Morphine Sulf Inj 10 Mg/Ml Vial IVP 4 mg Q4HR PRN Administration PAIN SCALE 7-10(Mod-Sev Ondansetron HCl 4 mg 03/28/24 17:07 03/29/24 11:25 Ondansetron Inj 2 Mg/Ml Inj 2 Ml IV 04/27/24 17:06 4 mg Q6H PRN Administration NAUSEA OR VOMITING Protocol Pantoprazole Sodium 40 mg 03/30/24 09:00 Pantoprazole 40 Mg Tablet PO 04/29/24 08:59 QDAY HEIDE Protocol Sennosides 2 tab 03/28/24 17:07 Senna Tablet PO 04/27/24 17:06 BID PRN CONSTIPATION Protocol Tamsulosin HCl 0.4 mg 03/28/24 17:30 03/29/24 08:45 Tamsulosin Hcl 0.4 Mg Capsule PO 04/27/24 17:29 0.4 mg QDAY [facility] Administration Plan Plan 58 y/o F with hx of kidney donation presented to the ED with left sided flank pain, nausea, vomiting. Admitted for sepsis secondary to pyelonephritis. #Sepsis secondary to pyelonephritis, improving #Cocci IgM positive Patient arrived with abdominal and left sided flank pain that began on Monday and has been progressing till arrival to ED On physical exam patient has + CVA tenderness CT abdomen pelvis was done and showed 25 x 26 mm pulmonary mass with spiculated margins right middle lobe, likely lung carcinoma, recommend CT chest without contrast follow-up, 2 mm nonobstructing anterior left renal calculus, no hydronephrosis, Right kidney not visualized, Possible posterior 24 mm left pelvic cyst, recommend pelvic sonography follow-up After my evaluation Sepsis alert was called Patient had fever, elevated WBCs, tachycardia, and UA showing bacterial infection Was given IVFs in ED Last lactate ~1.3 BC no growth after 1D Pt still experiencing CVA tenderness, L side Plan: ?On Zosyn ?Diflucan 400 mg p.o. daily ?Follow-up with urine culture ?Follow-up with IgG Cocci #JOEL, most likely prerenal #2 mm nonobstructing anterior left renal calculus Finding on CT abdomen pelvis patient has abdominal pain with nausea and vomiting patient has only 1 kidney as she donated the other to Patient possibly passed stone today, they may have seen in the urine today Cr 1.3 from 1.0 yesterday, most likely prerenal etiology Plan: - IVFs NS 100 cc/hr - pain control with morphine and norco PRN - strainer for stone ?Flomax 0.4 mg ? As above #25 x 26 mm pulmonary mass with spiculated margins right middle lobe incidental finding on CT abdomen pelvis CT chest abdomen pelvis done and showed 25 mm pulmonary mass with spiculated margins right middle lobe No mediastinal lymphadenopathy, No findings of metastatic disease in the abdomen or pelvis Spoke with Dr. Staton, recommended outpatient follow for biopsy Solitary pulmonary nodule malignancy risk score calculated to be: ~79% probability of malignancy Plan: ?Outpatient biopsy #Left ovarian cyst Pelvic US shows L simple ovarin cyst 2.4x 2.2 x 2.2 Plan: ?Monitor outpatient #Health Maintenance Disposition: MedSurg DVT prophylaxis: Heparin GI prophylaxis: None at this time Diet: Regular CODE STATUS: No intubation Patient seen and care discussed with my senior resident, Dr. Sim, and my attending physician, Dr. Asiya Malhotra, PGY-1 Attending Provider Attestation/Addendum I have examined the patient, reviewed labs and imaging findings, discussed the case with the resident(s), and reviewed entered orders. I agree with the plan of care as outlined in this note, with these additional summaries/recommendations: Patient seen at bedside. No acute overnight events. Patient reports some improvement in left flank pain and dysuria. Continue IV Zosyn for likely pyelonephritis. Leukocytosis improving. Urine and blood cultures pending. Patient was also found to have a 2 mm nonobstructing anterior left renal calculus with no evidence of hydronephrosis. Given the size of the stone, likely noncontributory to patient's left flank pain although patient may have passed a stone. Continue Flomax. No need for urological evaluation at this time given the size of the stone and no hydronephrosis seen. Continue pain management. Patient was also found to have a 25 x 26 mm pulmonary mass with spiculated margins and right middle lobe concerning for lung cancer. We will discuss with patient and interventional radiology if mass can be biopsied. Cocci IgM positive and started on fluconazole. Repeat hematology and chemistry panel in AM. Dr. Braden
[2024-03-29] MEDS: ACETAMINOPHEN 325 MG TABLET 650 MG PO (18:35)
[2024-03-30] VITALS (7 sets, daily range): BP systolic 91–120; BP diastolic 57–90; PULSE 62–76; RESP 17–18; TEMP 36.2–36.6; O2SAT 91–95; BMI 19.3
[2024-03-30] MEDS: ACETAMINOPHEN 325 MG TABLET 650 MG PO ×3 (03:49→19:35)
[2024-03-30] MEDS: ONDANSETRON INJ 2 MG/ML INJ 2 ML 4 MG IV ×2 (03:55→21:19)
[2024-03-30] MEDS: PIPER/TAZO INJ 3.375 GM in SODIUM CHLORIDE 0.9% (P) 50 ML IV ×3 (05:14→21:19)
[2024-03-30 06:00] LABS: Basophils # (Auto) 0.1 Thou/mm3 (0.0-0.2); Basophils % (Auto) 1 % (0-2.5); Eosinophils % (Auto) 0 % (0-10); Hematocrit 28.3 % (36.0-46.0); Hemoglobin 9.7 g/dL (12.0-16.0); Immature Granulocytes % (Auto) 1 % (0-0); Immature Granulocytes Auto 0.11 Thou/mm3 (0.00-0.00); Lymphocytes # (Auto) 1.1 Thou/mm3 (1.0-4.8); Lymphocytes % (Auto) 11 % (10-50); Mean Corpuscular HGB Conc 34.3 g/dl (31.0-37.0); Mean Corpuscular Hemoglobin 31.7 pg (25.0-35.0); Mean Corpuscular Volume 93 fL (80-100); Monocytes # (Auto) 0.9 Thou/mm3 (0.0-0.8); Monocytes % (Auto) 8 % (0-12); Neutrophils # (Auto) 8.3 Thou/mm3 (1.8-7.7); Neutrophils % (Auto) 79 % (37-80); Nucleated Red Blood Cell % 0 /100 WBC (0); Platelet Count 124 Thou/mm3 (140-440); RDW Standard Deviation 44.9 fL (36.4-46.3); Red Blood Count 3.06 Miln/mm3 (4.00-5.20); White Blood Count 10.5 Thou/mm3 (3.6-11.0)
[2024-03-30 06:38] LABS: Anion Gap 7 (7-16); BUN/Creatinine Ratio 12 Ratio (12-20); Blood Urea Nitrogen 13 mg/dL (9-23); Calcium 8.3 mg/dL (8.3-10.6); Carbon Dioxide 22.6 mMol/L (20.0-31.0); Chloride 109 mMol/L (98-107); Creatinine (Component) 1.1 mg/dL (0.6-1.3); Estimated Creatinine Clearance 52.5 mL/min (>60); Glucose 103 mg/dL (74-106); Osmolality,Calculated 277 (275-295); Potassium 3.6 mMol/L (3.4-5.1); Sodium 139 mMol/L (136-145); eGFR 58 See Note
[2024-03-30 08:23] LABS: Magnesium 1.8 mg/dL (1.6-2.6)
[2024-03-30 08:29] LABS: Ferritin 118 ng/mL (7.3-270.7); Total Iron Binding Capacity 197 mcg/dL (250-425)
[2024-03-30 08:39] LABS: Iron 7 mcg/dL (50-170)
[2024-03-30] MEDS: SENNA TABLET 2 TAB PO (09:46)
[2024-03-30] MEDS: FLUCONAZOLE 100 MG TABLET 400 MG PO (09:46)
[2024-03-30] MEDS: TAMSULOSIN HCL 0.4 MG CAPSULE PO (09:46)
[2024-03-30] MEDS: PANTOPRAZOLE 40 MG TABLET PO (09:46)
--- NOTE | 2024-03-30 15:53 | PD.RESPRO ---
Documentation for date of: 03/30/24 Subjective Subjective Interval history: Patient examined at bedside today. No acute overnight events. Patient reports she is doing well, improvement with back pain. Is wondering when she can go home. Request that she has a special doctor she knows that she wants to get the biopsy done with. Daughter present at bedside. Is wondering why she got the kidney infection. No other complaints at this time Exam Vital Signs Temp Pulse Resp BP Pulse Ox O2 Del Method 97.1 F 71 18 120/90 H 95 Room Air 03/30/24 11:59 03/30/24 11:59 03/30/24 11:59 03/30/24 11:59 03/30/24 11:59 03/30/24 11:59 Narrative Exam General: AAOx3, NAD, pleasant woman HEENT: Moist mucous membranes, conjunctiva clear, EOMI, PERRLA, Cardiovascular: S1, S2, radial pulses +2 bilat, RRR Pulmonary: CTAB bilat no cough, no wheezing GI: No tenderness to light or deep palpitation, no guarding, rigidity, rebound tenderness or distension Extremities: No presence of trace or pitting edema in lower extremities bilaterally, dorsalis pedis pulses +2 bilaterally Back: +mild CVA tenderness L side, improving Neuro: AAOx3, no focal motor or sensory deficits in the UE or LE bilat Psych: Good judgement, thought and behavior. Cooperative Objective Labs 03/31/24 05:37 03/31/24 05:37 Labs: Laboratory Results - last 24 hr 03/30/24 05:35 WBC 10.5 RBC 3.06 L Hgb 9.7 L Hct 28.3 L MCV 93 MCH 31.7 MCHC 34.3 RDW Std Deviation 44.9 Plt Count 124 L Neut % (Auto) 79 Lymph % (Auto) 11 [place] % (Auto) 8 Eos % (Auto) 0 Baso % (Auto) 1 Neut # (Auto) 8.3 H Lymph # (Auto) 1.1 [place] # (Auto) 0.9 H Eos # (Auto) 0.0 Baso # (Auto) 0.1 Immature Gran # (Auto) 0.11 H Absolute Nucleated RBC 0.00 Immature Gran % 1 H Nucleated RBC % 0 Sodium 139 Potassium 3.6 Chloride 109 H Carbon Dioxide 22.6 Anion Gap 7 BUN 13 Creatinine 1.1 Estim Creat Clear Calc 52.5 L eGFR 58 L BUN/Creatinine Ratio 12 Glucose 103 Calculated Osmolality 277 Calcium 8.3 Magnesium 1.8 Iron 7 L TIBC 197 L Ferritin 118 Quality Measures Quality Measures none Assessment & Plan Assessment Current Active Medications: Generic Name Dose Route Start Last Admin Trade Name Freq PRN Reason Stop Dose Admin Acetaminophen 650 mg 03/28/24 17:07 03/30/24 12:21 Acetaminophen 325 Mg Tablet PO 04/27/24 17:06 650 mg Q6H PRN Administration PAIN OR FEVER > 101 Protocol Hydrocodone Bitart/Acetaminophen 1 tab 03/29/24 08:43 Hydrocodone/Apap 7.5/325 Tablet PO 04/03/24 08:42 Q6HR PRN PAIN SCALE 4-6 (Moderate Fluconazole 400 mg 03/29/24 12:45 03/30/24 09:46 Fluconazole 100 Mg Tablet PO 04/05/24 12:44 400 mg QDAY HEIDE Administration Heparin Sodium (Porcine) 5,000 unit 03/28/24 22:00 03/30/24 13:36 Heparin Sod Inj 5000 Unit/Ml Vial SC 04/11/24 21:59 Not Given Q8HR HEIDE Piperacillin Sod/Tazobactam 50 mls @ 12.5 mls/hr 03/28/24 22:00 03/30/24 14:33 Sod 3.375 gm/ Sodium Chloride IV 04/04/24 21:59 12.5 mls/hr Q8HR HEIDE Administration Morphine Sulfate 4 mg 03/29/24 08:44 03/29/24 11:26 Morphine Sulf Inj 10 Mg/Ml Vial IVP 4 mg Q4HR PRN Administration PAIN SCALE 7-10(Mod-Sev Ondansetron HCl 4 mg 03/28/24 17:07 03/30/24 03:55 Ondansetron Inj 2 Mg/Ml Inj 2 Ml IV 04/27/24 17:06 4 mg Q6H PRN Administration NAUSEA OR VOMITING Protocol Pantoprazole Sodium 40 mg 03/30/24 09:00 03/30/24 09:46 Pantoprazole 40 Mg Tablet PO 04/29/24 08:59 40 mg QDAY HEIDE Administration Protocol Sennosides 2 tab 03/28/24 17:07 03/30/24 09:46 Senna Tablet PO 04/27/24 17:06 2 tab BID PRN Administration CONSTIPATION Protocol Tamsulosin HCl 0.4 mg 03/28/24 17:30 03/30/24 09:46 Tamsulosin Hcl 0.4 Mg Capsule PO 04/27/24 17:29 0.4 mg QDAY HEIDE Administration Plan Plan 58 y/o F with hx of kidney donation presented to the ED with left sided flank pain, nausea, vomiting. Admitted for sepsis secondary to pyelonephritis. #Sepsis secondary to pyelonephritis, improving #Cocci IgM positive Patient arrived with abdominal and left sided flank pain that began on Monday and has been progressing till arrival to ED On physical exam patient has + CVA tenderness CT abdomen pelvis was done and showed 25 x 26 mm pulmonary mass with spiculated margins right middle lobe, likely lung carcinoma, recommend CT chest without contrast follow-up, 2 mm nonobstructing anterior left renal calculus, no hydronephrosis, Right kidney not visualized, Possible posterior 24 mm left pelvic cyst, recommend pelvic sonography follow-up After my evaluation Sepsis alert was called Patient had fever, elevated WBCs, tachycardia, and UA showing bacterial infection Was given IVFs in ED Last lactate ~1.3 BC no growth after 1D Pt still experiencing CVA tenderness, L side Urine culture still has not resulted, will need to follow up for appropriate abx regimen Plan: ?On Zosyn ?Diflucan 400 mg p.o. daily ?Follow-up with urine culture ?Follow-up with IgG Cocci #JOEL, most likely prerenal, improving #2 mm nonobstructing anterior left renal calculus Finding on CT abdomen pelvis patient has abdominal pain with nausea and vomiting patient has only 1 kidney as she donated the other to Patient possibly passed stone today, they may have seen in the urine today Cr 1.1 from 1.3 yesterday, will not require more fluids at this time Plan: - pain control with morphine and norco PRN - strainer for stone ?Flomax 0.4 mg ? As above #25 x 26 mm pulmonary mass with spiculated margins right middle lobe incidental finding on CT abdomen pelvis CT chest abdomen pelvis done and showed 25 mm pulmonary mass with spiculated margins right middle lobe No mediastinal lymphadenopathy, No findings of metastatic disease in the abdomen or pelvis Spoke with Dr. Staton, recommended outpatient follow for biopsy Solitary pulmonary nodule malignancy risk score calculated to be: ~79% probability of malignancy Pt reports she does not want the biopsy to be done here and knows a doctor that she would like to go through for biopsy Spoke with patient and daughter in regards to this Told her that she will need PCP to order this and facilitate this process Plan: ?Outpatient biopsy #Left ovarian cyst Pelvic US shows L simple ovarin cyst 2.4x 2.2 x 2.2 Plan: ?Monitor outpatient #Health Maintenance Disposition: MedSurg DVT prophylaxis: Heparin GI prophylaxis: None at this time Diet: Regular CODE STATUS: No intubation Patient seen and care discussed with my senior resident, Dr. Delacruz, and my attending physician, Dr. Asiya Malhotra, PGY-1 Senior resident attestation: Patient evaluated and examined at the bedside, plan of care discussed with rest of the team including my attending physician, except as noted. 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 Patient was admitted for sepsis secondary to pyelonephritis. #Sepsis secondary to pyelonephritis?resolving ? Sepsis alert called, IV fluid boluses given, blood cultures, urine cultures ordered, lactic acid q4h, started on IV Zosyn. ? Of note, apparently we do not have urology coverage available for the week, though given this patient's presentation of complicated UTI but nonobstructive kidney stone, patient can likely be managed with conservative management. Patient's son at the bedside is present, we discussed the possibility of transfer if the need arises at a later date for urological services. They reported understanding. Questions and concerns were answered. ? Noted improvement in symptoms, patient is not requiring IV morphine anymore. Clinically improved. #Coccidiomycosis #Pulmonary mass with spiculated margins ? CT shows 25 mm pulmonary abscess and pulm nodules right middle lobe, reported as pulmonary neoplasm, discussed with IR regarding biopsy of pulmonary nodule. Discussed with the patient including patient's daughter who is the medical decision maker for her, and they feel very strongly about getting an outpatient biopsy of the pulmonary mass, they are aware of the risks and benefits of the delay in diagnosis possible cancer, versus possible pulmonary nodule, but they feel very strongly about not getting a procedure in this hospital. We respect patient's wishes, and their questions and concerns were answered to the best of our abilities. ?Diflucan ordered for valley fever Quresh PGY2 Attending Provider Attestation/Addendum I have examined the patient, reviewed labs and imaging findings, discussed the case with the resident(s), and reviewed entered orders. I agree with the plan of care as outlined in this note, with these additional summaries/recommendations: Patient seen at bedside. No acute overnight events. Continue IV Zosyn for complicated urinary tract infection/pyelonephritis. Overall patient's pain has improved. No longer requiring IV morphine and continue oral [place]. Blood cultures show no growth at 24 hours and urine culture results still pending. Awaiting negative blood cultures at 48 hours and urine culture results before patient can be safely discharged. Patient was also found to have nephrolithiasis with a 2 mm nonobstructing anterior left renal calculus with no evidence of hydronephrosis. Patient should stay hydrated and continue Flomax. Patient was also found to have a 25 x 26 mm pulmonary mass with spiculated margins in right middle lobe concerning for lung cancer. Advised patient she will need to set up biopsy with primary care provider as she would like to have biopsy done at different facility. Cocci IgM positive and started on fluconazole and awaiting titer results. Repeat hematology and chemistry panel in AM. Dr. Braden
[2024-03-31] VITALS: BP 112/75; PULSE 60; RESP 17; TEMP 36.1; O2SAT 95
[2024-03-31 04:00] VITALS: BP 131/89; PULSE 701; RESP 18; TEMP 36.6; O2SAT 95
--- NOTE | 2024-03-31 05:44 | PC.NURSE ---
Patient complaining of abdominal pain and tightness; per pt report, the antibiotic is causing it. Pt is not tolerating her diet. She stated to feel nauseous all the time. Dr. Apodaca was made aware about pt's symptoms. zosyn was not given this morning following DR. Apodaca's instructions.
[2024-03-31 06:24] LABS: Basophils % (Auto) 1 % (0-2.5); Eosinophils # (Auto) 0.1 Thou/mm3 (0.0-0.5); Eosinophils % (Auto) 1 % (0-10); Hematocrit 31.1 % (36.0-46.0); Hemoglobin 10.4 g/dL (12.0-16.0); Immature Granulocytes % (Auto) 1 % (0-0); Immature Granulocytes Auto 0.05 Thou/mm3 (0.00-0.00); Lymphocytes # (Auto) 1.2 Thou/mm3 (1.0-4.8); Lymphocytes % (Auto) 17 % (10-50); Mean Corpuscular HGB Conc 33.4 g/dl (31.0-37.0); Mean Corpuscular Hemoglobin 31.4 pg (25.0-35.0); Mean Corpuscular Volume 94 fL (80-100); Monocytes # (Auto) 0.6 Thou/mm3 (0.0-0.8); Monocytes % (Auto) 8 % (0-12); Neutrophils # (Auto) 5.4 Thou/mm3 (1.8-7.7); Neutrophils % (Auto) 74 % (37-80); Nucleated Red Blood Cell % 0 /100 WBC (0); Platelet Count 151 Thou/mm3 (140-440); RDW Standard Deviation 45.1 fL (36.4-46.3); Red Blood Count 3.31 Miln/mm3 (4.00-5.20); White Blood Count 7.4 Thou/mm3 (3.6-11.0)
[2024-03-31 06:26] LABS: Anion Gap 9 (7-16); BUN/Creatinine Ratio 9 Ratio (12-20); Blood Urea Nitrogen 9 mg/dL (9-23); Calcium 8.8 mg/dL (8.3-10.6); Carbon Dioxide 22.5 mMol/L (20.0-31.0); Chloride 109 mMol/L (98-107); Estimated Creatinine Clearance 57.7 mL/min (>60); Glucose 103 mg/dL (74-106); Osmolality,Calculated 278 (275-295); Potassium 3.9 mMol/L (3.4-5.1); Sodium 140 mMol/L (136-145); eGFR > 60 See Note
[2024-03-31 07:25] VITALS: PULSE 74; RESP 20; RESP 95
[2024-03-31 07:57] VITALS: BP 123/78; PULSE 72; RESP 16; TEMP 36.6; O2SAT 97
[2024-03-31] MEDS: TAMSULOSIN HCL 0.4 MG CAPSULE PO (09:23)
[2024-03-31] MEDS: PANTOPRAZOLE 40 MG TABLET PO (09:23)
[2024-03-31] MEDS: FLUCONAZOLE 100 MG TABLET 400 MG PO (09:23)
--- NOTE | 2024-03-31 10:19 | PD.RESDS ---
Planned Discharge Date 03/31/24 DS: Providers Provider Date of admission: 03/28/24 17:08 Primary care physician: Physician No Primary/Family Admitting Provider: Bryan Braden MD Attending Provider on Admission: Bryan Braden MD Attending Provider on DC: Bryan Braden MD Discharging Provider: Gurdeep Ivey MD Anticipated date of discharge: 03/31/24 DS: Diagnosis Problem List Completed Was Problem List Reviewed/Reconciled?: Yes Hospital Course Hospital Course Hospital course: 58 y/o F with hx of Kidney donation 10 years ago presented to the ED due to abdominal pain associated with nausea and vomiting and left sided flank pain. Patient had abdominal pelvic CT done showed CT abdomen pelvis was done and showed 25 x 26 mm pulmonary mass with spiculated margins right middle lobe, likely lung carcinoma, recommend CT chest without contrast follow-up, 2 mm nonobstructing anterior left renal calculus, no hydronephrosis, Right kidney not visualized, Possible posterior 24 mm left pelvic cyst. Patient was admitted for sepsis secondary to Pyelonephritis. During hospital stay patient was treated with IV antibiotics, IV hydration as part of management for pyelonephritis. Patient was found to have Cocci pneumonia evidenced by IgM positive serology, and was started on treatment with fluconazole. Patient was found acute kidney injury which was managed with IV hydration and showed improvement throughout hospital stay. Patient was found to have a pulmonary mass and left ovarian cyst on CT, this was an incidental finding, patient was instructed to follow up as an outpatient for biopsy. Patient at this time is medically stable for discharge. Recommend taking 5 more days of antibiotic ciprofloxacin 500 mg twice daily for E. coli urine tract infection. Recommend completing 3 months of treatment with fluconazole for possible coccidiomycosis. Recommend taking [id number] Tylenol for pain. Also recommend getting an outpatient appointment with urologist for evaluation of kidney stones. As discussed, recommend urgent biopsy of the lung mass to evaluate for possible lung cancer versus other etiologies. Please visit your primary care physician for referrals to urologist and appointment for lung biopsy. In case of worsening symptoms, please return to the emergency room. Problem List: #Sepsis secondary to pyelonephritis, improving #Cocci IgM positive #JOEL, most likely prerenal, improving #2 mm nonobstructing anterior left renal calculus #25 x 26 mm pulmonary mass with spiculated margins right middle lobe #Left ovarian cyst Case discussed with my attending Dr. Asiya Ivey MD PGY-1 Status at Discharge Functional status at discharge: independent ambulation Overall status at discharge: patient is back to baseline Time Spent with Patient Time attestation: Total time spent providing and/or coordinating discharge services: Time spent: Greater than 30 minutes Exam Vital Signs Temp Pulse Resp BP Pulse Ox O2 Del Method 97.8 F 72 16 123/78 97 Room Air 03/31/24 07:57 03/31/24 07:57 03/31/24 07:57 03/31/24 07:57 03/31/24 07:57 03/31/24 07:57 Narrative Exam Physical Exam GENERAL: NAD, AAOx3 HEENT: Moist mucosa. Eyes open, symmetrical, & clear CARDIO: Heart RRR, no obvious murmurs PULM: No noted coughing/dyspnea CTA B/L, no R/W/R GI: Abdomen soft, nondistended, no pain on palpation. BSx4 SKIN/MSK/EXT: No wounds/rashes/edema/amputations, no pain on palpation. Pedal pulses present B/L NEURO: AAOx3, no focal neuro deficits, able to move all 4 extremities Discharge Plan Plan Patient Disposition: HOME (Self Care) Care Plan Goals: Recommend taking 5 more days of antibiotic ciprofloxacin 500 mg twice daily for E. coli urine tract infection. Recommend completing 3 months of treatment with fluconazole for possible coccidiomycosis. Recommend taking [id number] Tylenol for pain. Also recommend getting an outpatient appointment with urologist for evaluation of kidney stones. As discussed, recommend urgent biopsy of the lung mass to evaluate for possible lung cancer versus other etiologies. Please visit your primary care physician for referrals to urologist and appointment for lung biopsy. In case of worsening symptoms, please return to the emergency room. Prescriptions/Referrals Prescriptions/Med Rec: New fluconazole 200 mg tablet 400 mg PO QDAY 30 Days Qty: 60 0RF ciprofloxacin HCl 500 mg tablet 500 mg PO BID 5 Days Qty: 10 0RF Referrals: No Primary/Family,Physician [Primary Care Provider] - Patient/Caregiver Discharge Instructions Education Materials: Urinary Tract Infections in Women, Kidney Infec Dc, Understanding Coccidioidomycosis, ED Ovarian Cyst, ED Pulmonary Nodule, Solitary Print Language: Tamazight Stand Alone Forms: Yana Award Info., Patient Portal Info Letter Discharge Order Discharge Orders: Discharge (Routine); Ordered 03/31/24 Ordered By: Gurdeep Ivey Quality Discharge Quality Measures VTE prophylaxis MD Attestestation MD Attestation I have examined the patient, reviewed labs and imaging findings, discussed the case with the resident(s), and reviewed entered orders. I agree with the plan of care as outlined in this note. Dr. Braden
== END 2024-03-31 10:53 | disposition home or self-care (01) | DRG 872 ==
LOC: SERX 16:28 → SERHOLD 17:48 → S3NX 19:43
PROVIDERS: Nurse Practitioner Primary Care; Student in an Organized Health Care Education/Training Program; Admitting Provider Student in an Organized Health Care Education/Training Program; Emergency Provider Emergency Medicine; Visit Provider Student in an Organized Health Care Education/Training Program
DX: A41.9 Sepsis, unspecified organism (principal); N10 Acute pyelonephritis; N17.9 Acute kidney failure, unspecified; B38.9 Coccidioidomycosis, unspecified; N20.0 Calculus of kidney; N83.292 Other ovarian cyst, left side; Z90.5 Acquired absence of kidney; R91.8 Other nonspecific abnormal finding of lung field; N83.202 Unspecified ovarian cyst, left side
CPT/HCPCS: 36415; 71046; 71260; 74176; 74177; 76856; 80048; 80053; 80061; 80076; 81001; 81025; 82728; 83540; 83550; 83605; 83690; 83735; 84100; 84145; 84443; 85025; 85610; 86635; 87040; 87077; 87081; 87086; 87186; 87400; 96361; 96365; 96367; 96375; 96376; 99285; A4649; J0696; J2270; J2405; J2470; J2543; J7030; J7040; J7050; Q9967; A9270

== ENCOUNTER → 2024-10-16 | Outpatient (CLI) | payer BC, SELFPAY ==
[2024-10-16 15:08] LABS: Collection Type, Urine Clean Catch
[2024-10-16 17:16] LABS: Bacteria,Urine 1+; Bilirubin,Urine Negative (Negative); Blood,Urine Trace (Negative); Clarity,Urine Clear (Clear/Hazy); Color,Urine Yellow (Lt Yel-Yel); Glucose, Urine Negative (Negative); Ketones,Urine Negative (Negative); Leukocyte Esterase,Urine Positive (Negative); Nitrite,Urine Negative (Negative); PH,Urine 6.5 (5.0-7.0); Protein,Urine Negative (Neg - Trace); RBC,Urine 11 /hpf (0-3); Specific Gravity,Urine 1.008 (1.001-1.035); Squamous Epithelial Cell,Urine 1 /hpf (0-5); Urobilinogen,Urine Negative mg/dL (0.0-1.0); WBC,Urine 25 /hpf (0-5)
== END | disposition home or self-care (01) ==
LOC: SLDO 14:28
PROVIDERS: PCP Family Medicine; Referring Provider Family Medicine; Visit Provider Family Medicine
DX: N39.0 Urinary tract infection, site not specified (principal)
CPT/HCPCS: 81001; 87077; 87086; 87186

== ENCOUNTER 2025-02-12 09:36 | Outpatient (AMB) | payer BC, SELFPAY ==
--- NOTE | 2025-02-12 09:38 | AMB.GYNCLNOT ---
Vital Signs 02/12/25 09:42 Height 1.78 m Height Method Stated Weight 57.776 kg Weight Measurement Method Standing Scale BMI 18.2 BP 137/81 H Blood Pressure Source Automatic Cuff Blood Pressure Location Right Upper Arm Position Sitting Respiration 18 Pulse 91 Pulse Source Monitor Temp 97.9 F Temp Source Temporal Artery Scan Pulse Oximetry (%) 98 Oxygen Delivery Method Room Air Allergies/Home Meds Allergies & Medications Allergies codeine Allergy (Verified 02/12/25 09:44) Vomiting Medication Reconciliation No Known Home Medications 02/12/25 [History Confirmed 02/12/25] Intake Visit Data Collection New Patient or Established: Established Patient (seen at [facility] within 3 years) Reason for Visit:: REFERRAL Seen by Clinical Staff ONLY (RN/MA): No Supervisor Compressed Yeast Required: No Do You Feel Safe at Home: Yes Authorities Contacted: N/A PCP or OBGYN visit in last 3 months: No Hx Now: No Pain Present Currently: No Pain Scale Used: [place]ale[place]-Garcia/Numerical Pain scale:: 0 Smoking Status Smoking Status: Never smoker Immunizations Flu Vaccine in the Last 12 Months: No Flu Vaccine Exclusion Criteria: No Exclusion Criteria 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 1. Little interest or pleasure in doing things: several days 2. Feeling down, depressed, or hopeless: several days Total score: 2 PHQ-9 3. Trouble falling or staying asleep, or sleeping too much: Not at all 4. Feeling tired or having little energy: Several days 5. Poor appetite or overeating: Not at all 6. Feeling bad about yourself - or that you are a failure or have let yourself or your family down: Not at all 7. Trouble concentrating on things, such as reading the newspaper or watching television: Not at all 8. Moving or speaking so slowly that other people could have noticed? - Or the opposite - being so fidgety or restless that you have been moving around a lot more than usual: not at all 9. Thoughts that you would be better off or of hurting yourself in some way: Not at all Total score: 3.0 If you checked off any problems, how difficult have these problems made it for you to do your work, take care of things at home, or get along with other people?: not difficult at all Source: Developed by Drs. Vladimir Hendricks, Monserrat Nunez, Glenn Cowan and colleagues, with an educational shyam from [employer]. Depression screen completed yes Social History Living Situation History Marital Status: Lives With: Alone Housing: House Housing Other:: Pt lives with son Tobacco History Smoking Status: Never smoker Second Hand Smoke Exposure: No Alcohol History Alcohol Intake: Never Domestic Abuse History Do You Feel Safe at Home: Yes History of Present Illness HPI Narrative Consultation for abnormal Pap smear results showing atypical squamous cells of undetermined significance (ASCUS) with positive high-risk HPV Chana Tse is a 59-year-old female presenting for consultation regarding abnormal Pap smear results from [facility]. She reports this is her first time having abnormal Pap smear results, having never had abnormal findings previously. The patient's Pap smear showed atypical squamous cells of undetermined significance (ASCUS) with positive HPV testing for high-risk HPV types other than HPV 16/18. She inquired whether she may have had HPV her whole life or if she could have acquired it in the last 2 years due to having a new partner. The patient has a significant recent medical history of lung cancer, for which she underwent surgery in July. She reports the cancer was isolated and required no additional treatment such as chemotherapy or radiation. She is currently under surveillance with CT scans, having had one on Monday prior to this visit. She mentions that she has been falling apart since losing her . The patient is visiting for one week and lives outside the local area. She reports no current symptoms related to her gynecologic condition. Medical History: - Lung cancer, treated with surgery in July 2024, currently under surveillance with CT scans Surgical History: - Lung surgery in July 2024 for lung cancer, isolated disease with no additional treatment required Social History: - Marital Status: (recently lost ) - Living Situation: Currently visiting for one week - Relationship Status: Has a new partner within the last 2 years Exam General General Appearance: alert, in no apparent distress and healthy appearing Head Head exam: atraumatic Neck Neck exam: Present normal inspection and trachea midline Chest Chest inspection: Present normal inspection and symmetric chest wall rise External exam: Present normal external exam; Absent tenderness Neuro Neurological exam: Present oriented X3 Psych Psychiatric exam: Present normal affect and normal mood Office Procedures [facility] Clinic LOC & Office Proc's Nursing/Assessment Patient Status: Established Patient OB Clinic Nursing Assessment: Medication Reconciliation, Update PMH in EMR and Vital Signs OB Clinic Coordination of Care: Complex Care and Chronic Disease 1-5, Education Complex Pt/Fam, Consent,records obtained, informed consent, Lab and Imaging orders, Results/Orders obtained and Staff clarify orders Established Patient Charge Established Patient Point Assignment: 110 Established Patient Point Charge: EP Level 3 (80-115) Assessment & Plan Diagnosis / Problem List (1) Atypical squamous cells of undetermined significance on cytologic smear of cervix (ASC-US): Status: Acute (2) Personal history of other malignant neoplasm of bronchus and lung: Status: Acute Plan ASCUS with positive high-risk HPV Assessment: Patient has atypical squamous cells of undetermined significance (ASCUS) on cervical cytology with positive high-risk HPV testing (non-16/18 types). This represents the slightest abnormality in cellular appearance but with viral risk factor present. Per ASCCP guidelines, the immediate risk exceeds the threshold for colposcopic evaluation, warranting colposcopic biopsy. The absolute risk of developing cancer is estimated at 1-3%. HPV infection likely represents reactivation of longstanding virus due to declining immunity after menopause rather than recent acquisition, as it typically takes about 10 years from first exposure for infection to manifest. This is the patient's first abnormal Pap smear result. Plan: - Colposcopy with biopsy procedure scheduled - Submit insurance authorization for colposcopy procedure - Schedule follow-up appointment in 2 weeks for colposcopy procedure once insurance authorization obtained History of lung cancer Assessment: Patient underwent surgical resection in July for lung cancer that was isolated with no additional treatment required. Currently under surveillance with recent CT scan performed on Monday for monitoring purposes as part of routine 6-month follow-up protocol. Plan: - Continue surveillance CT scans for lung cancer monitoring
[2025-02-12 09:42] VITALS: BP 137/81; PULSE 91; RESP 18; TEMP 36.6; O2SAT 98; BMI 18.2
== END 2025-02-12 10:10 | disposition home or self-care (01) ==
LOC: HODSOBC 09:36
PROVIDERS: Supervising Provider Obstetrics & Gynecology; Visit Provider Obstetrics & Gynecology
DX: R87.610 Atypical squamous cells of undetermined significance on cytologic smear of cervix (ASC-US) (principal); Z85.118 Personal history of other malignant neoplasm of bronchus and lung; Z88.5 Allergy status to narcotic agent
CPT/HCPCS: 99213; G0463

== ENCOUNTER 2025-02-26 08:14 | Outpatient (AMB) | payer BC, SELFPAY ==
[2025-02-26 08:30] VITALS: BP 128/86; PULSE 84; RESP 18; TEMP 36.2; O2SAT 97; BMI 18.5
--- NOTE | 2025-02-26 08:30 | GYNCLNT_ITS ---
Vital Signs 02/26/25 08:30 Height 1.78 m Height Method Stated Weight 58.627 kg Weight Measurement Method Standing Scale BMI 18.5 BP 128/86 H Blood Pressure Source Automatic Cuff Blood Pressure Location Right Upper Arm Position Sitting Respiration 18 Pulse 84 Pulse Source Monitor Temp 97.1 F Temp Source Temporal Artery Scan Pulse Oximetry (%) 97 Oxygen Delivery Method Room Air Allergies/Home Meds Allergies & Medications Allergies codeine Allergy (Verified 02/26/25 08:33) Vomiting Medication Reconciliation No Known Home Medications 02/12/25 [History Confirmed 02/26/25] Intake Visit Data Collection New Patient or Established: Established Patient (seen at [facility] within 3 years) Reason for Visit:: COLPO Seen by Clinical Staff ONLY (RN/MA): No Route Rider Supervisor Required: No Do You Feel Safe at Home: Yes Authorities Contacted: N/A PCP or OBGYN visit in last 3 months: Yes Date of Last PCP or OBGYN visit: 02/12/25 Hx Now: No Are you currently on any form of Control: No Pain Present Currently: No Pain Scale Used: Galeana-Garcia/Numerical Pain scale:: 0 Smoking Status Smoking Status: Never smoker Immunizations Flu Vaccine in the Last 12 Months: No Flu Vaccine Exclusion Criteria: No Exclusion Criteria 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 1. Little interest or pleasure in doing things: several days PHQ-9 3. Trouble falling or staying asleep, or sleeping too much: Not at all 4. Feeling tired or having little energy: Not at all 5. Poor appetite or overeating: Not at all 6. Feeling bad about yourself - or that you are a failure or have let yourself or your family down: Not at all 7. Trouble concentrating on things, such as reading the newspaper or watching television: Not at all 8. Moving or speaking so slowly that other people could have noticed? - Or the opposite - being so fidgety or restless that you have been moving around a lot more than usual: not at all 9. Thoughts that you would be better off or of hurting yourself in some way: Not at all If you checked off any problems, how difficult have these problems made it for you to do your work, take care of things at home, or get along with other people?: not difficult at all Source: Developed by Drs. Vladimir Hendricks, Monserrat Nunez, Glenn Cowan and colleagues, with an educational shyam from [employer]. Depression screen completed yes Social History Living Situation History Marital Status: Lives With: Alone Housing: House Housing Other:: Pt lives with son Tobacco History Smoking Status: Never smoker Second Hand Smoke Exposure: No Alcohol History Alcohol Intake: Never Domestic Abuse History Do You Feel Safe at Home: Yes History of Present Illness HPI Narrative Chana Tse presents for a scheduled colposcopy procedure as previously discussed. 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 Exam General General Appearance: alert, in no apparent distress and healthy appearing Head Head exam: atraumatic Neck Neck exam: Present normal inspection and trachea midline Chest Chest inspection: Present normal inspection and symmetric chest wall rise External exam: Present normal external exam; Absent tenderness Neuro Neurological exam: Present oriented X3 Psych Psychiatric exam: Present normal affect and normal mood Office Procedures OBC Clinic LOC & Office Proc's Nursing/Assessment Patient Status: Established Patient OB Clinic Nursing Assessment: Medication Reconciliation, Update PMH in EMR and Vital Signs OB Clinic Coordination of Care: Complex Care and Chronic Disease 1-5, Education Complex Pt/Fam, Consent,records obtained, informed consent, Lab and Imaging orders, Results/Orders obtained and Staff clarify orders Miscellaneous Interventions: Path collection/handling and Pelvic Culture Established Patient Charge Established Patient Point Assignment: 135 Established Patient Point Charge: EP Level 4 (120-155) In Clinic Procedures Minor Surgical Procedure: Yes Assessment & Plan Diagnosis / Problem List (1) Atypical squamous cells of undetermined significance on cytologic smear of cervix (ASC-US): Status: Acute Plan Abnormal cervical findings requiring colposcopy: - Patient underwent colposcopy with directed cervical biopsies. - Visual examination with acetic acid application showed no areas turning white, which is reassuring as abnormal tissue typically demonstrates acetowhite changes. - The absence of color changes suggests lower likelihood of significant cervical dysplasia or malignancy, though histopathologic confirmation is pending. Plan: - Cervical biopsies obtained from 12 o'clock and 6 o'clock positions, plus endocervical curettage (ECC). - Biopsy results expected in 3-4 working days. - Telephone visit scheduled in approximately one week to discuss biopsy results. - Patient counseled that brownish, [id number] discharge may occur from hemostatic medication applied post-procedure. 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 HISTORY HPV vaccine: none Allergy to Latex: No Allergic to Iodine or Betadine: No Contraception: none STI screening up to date: Yes New partner(s) since last screening: No Tobacco use: No PRE-PROCEDURE Consent signed: Yes Discussion w/ patient: Nature & meaning of cervical cytology screening and Cervical dysplasia and its significance & natural hx PROCEDURE Time out performed: Yes Colposcopy of:: cervix Speculum used:: large The vulva, vagina & perianal regions were examined w/ findings of:: no gross abnormalities A speculum was placed, and the cervix and vagina were treated with:: Diluted acetic acid Cervix:: Fully visualized Squamocolumnar junction:: Fully visualized Acetowhite or non-Lugol's staining: not present Lesion(s): not present Colposcopic Impression: normal/benign findings Patient tolerated procedure:: well PLAN HPV Plan:: n/a Pt. advised of relationship between smoking and cervical dysplasia/cancer; smoking cessation discussed: Yes Colposcopy results to be communicated per:: phone
== END 2025-02-26 08:45 | disposition home or self-care (01) ==
LOC: HODSOBC 08:14
PROVIDERS: Supervising Provider Obstetrics & Gynecology; Visit Provider Obstetrics & Gynecology
DX: R87.610 Atypical squamous cells of undetermined significance on cytologic smear of cervix (ASC-US) (principal); Z88.5 Allergy status to narcotic agent
CPT/HCPCS: 57455; 99214; J3490; G0463

== ENCOUNTER 2025-03-11 08:19 | Outpatient (AMB) | payer BC, SELFPAY ==
--- NOTE | 2025-03-11 08:21 | GYNCLNT_ITS ---
Allergies/Home Meds Allergies & Medications Allergies codeine Allergy (Verified 03/11/25 08:21) Vomiting Medication Reconciliation No Known Home Medications 02/12/25 [History Confirmed 03/11/25] Intake Visit Data Collection New Patient or Established: Established Patient (seen at [facility] within 3 years) Reason for Visit:: TELEMED LAB RESULTS Seen by Clinical Staff ONLY (RN/MA): No Carpenters Required: No Do You Feel Safe at Home: Yes Authorities Contacted: N/A PCP or OBGYN visit in last 3 months: Yes Date of Last PCP or OBGYN visit: 02/12/25 Hx Now: No Are you currently on any form of Control: No Pain Present Currently: No Pain Scale Used: Galeana-Garcia/Numerical Pain scale:: 0 Smoking Status Smoking Status: Never smoker Immunizations Flu Vaccine in the Last 12 Months: No Flu Vaccine Exclusion Criteria: No Exclusion Criteria For Telemed visit only Telemed Video/Phone Visit: Yes Verbal consent obtained for Telemed visit?: Yes Verbal Consent witness name: MINA HSU MA 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 1. Little interest or pleasure in doing things: several days 2. Feeling down, depressed, or hopeless: not at all Total score: 1 PHQ-9 3. Trouble falling or staying asleep, or sleeping too much: Not at all 4. Feeling tired or having little energy: Not at all 5. Poor appetite or overeating: Not at all 6. Feeling bad about yourself - or that you are a failure or have let yourself or your family down: Not at all 7. Trouble concentrating on things, such as reading the newspaper or watching television: Not at all 8. Moving or speaking so slowly that other people could have noticed? - Or the opposite - being so fidgety or restless that you have been moving around a lot more than usual: not at all 9. Thoughts that you would be better off or of hurting yourself in some way: Not at all Total score: 1 If you checked off any problems, how difficult have these problems made it for you to do your work, take care of things at home, or get along with other people?: not difficult at all Source: Developed by Drs. Vladimir Hendricks, Monserrat Nunez, Glenn Cowan and colleagues, with an educational shyam from [employer]. Depression screen completed yes Social History Living Situation History Lives With: Alone Housing: House Housing Other:: Pt lives with son Tobacco History Smoking Status: Never smoker Second Hand Smoke Exposure: No Alcohol History Alcohol Intake: Never Domestic Abuse History Do You Feel Safe at Home: Yes History of Present Illness HPI Narrative Chana Tse is following up for colposcopy biopsy results. The patient was contacted by phone regarding her recent biopsy findings. ROS: Negative except as stated above, limited to SUPERVISOR TITLE and pertinent complaints. Diagnostic Test Results and Labs: - Biopsy: Benign results, no cancer or precancer cells identified Office Procedures OBC Clinic LOC & Office Proc's Nursing/Assessment Patient Status: Established Patient OB Clinic Nursing Assessment: Medication Reconciliation and Update PMH in EMR OB Clinic Coordination of Care: Lab and Imaging orders, Results/Orders obtained and Staff clarify orders Established Patient Charge Established Patient Point Assignment: 45 Telehealth If patient is seen using Teleconference methods, complete New/Est section, but DO NOT bhavesh points only bhavesh the correct Telemed visit type Telemed Phone/Video with patient at home & Dr,PA,GAUGE AND WEIGH 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 Plan: - Routine Pap smear in one year. - If next Pap smear is normal, return to routine 3- to 5-year screening intervals.
== END 2025-03-11 09:59 | disposition home or self-care (01) ==
LOC: HODSOBC 08:19
PROVIDERS: Supervising Provider Obstetrics & Gynecology; Visit Provider Obstetrics & Gynecology
DX: R87.610 Atypical squamous cells of undetermined significance on cytologic smear of cervix (ASC-US) (principal); Z88.5 Allergy status to narcotic agent
CPT/HCPCS: 99212; G0463